=== PATIENT | female | born 1945 | race Caucasian/White ===

== ENCOUNTER 2018-12-09 11:14 | Inpatient (IN) | payer MEDICARE, MEDICAID ==
--- NOTE | 2018-12-09 12:23 | EDM.PDOC ---
ED HPI GENERAL MEDICAL PROBLEM - General Chief Complaint: General Stated Complaint: LETHARIGIC Time Seen by Provider: 12/09/18 11:40 Source of Information: Reports: Family (), Other (Patient can give essentially no history due to her previous stroke) History Limitations: Reports: Physical Impairment (As above) - History of Present Illness INITIAL COMMENTS - FREE TEXT/NARRATIVE: 73-year-old female with history of previous stroke who presents via from prison secondary to reported history of fever yesterday and poor by mouth intake for the past few days. The actually feels that she has not been eating or taking liquids well the past few weeks. She complains of neck pain today but cannot quantitate or qualitate this. No cough. No nausea. No vomiting. No chest pain. Apparently they called Dr. Zamora and he told them to bring her to the emergency department for evaluation. This is really all the history that can be obtained. There are no other associated signs or symptoms. There are no other modifying factors. Onset: Other ( is really unsure but he reports that the symptoms have been worsening since 12/07/2018 and he feels that she has not been eating or drinking well for the past few weeks.) Duration: Other (Unknown) Location: Reports: Neck Quality: Reports: Other (Patient unable to provide this area she apparently has had torticollis to the right for 6 months or longer and this is unchanged per the . 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 - Related Data Allergies Allergy/AdvReac Type Severity Reaction Status Date / Time Penicillins Allergy Cannot Verified 12/09/18 11:20 Remember Sulfa (Sulfonamide Allergy Cannot Verified 12/09/18 11:20 Antibiotics) Remember Home Meds: Home Meds Acetaminophen [Tylenol] 650 mg PO ASDIRECTED PRN 12/09/18 [History] Acetaminophen [Tylenol] 650 mg PO BID 12/09/18 [History] Bisacodyl 10 mg RC DAILY PRN 12/09/18 [History] Chlorhexidine Gluconate [Peridex] 15 ml MM BID 12/09/18 [History] Cholecalciferol (Vitamin D3) [Vitamin D3] 2,000 units PO DAILY 12/09/18 [History ] Digoxin 125 mcg PO DAILY 12/09/18 [History] Diltiazem HCl [Cardizem] 60 mg PO TID 12/09/18 [History] FLUoxetine HCl [Prozac] 20 mg PO DAILY 12/09/18 [History] FLUoxetine [PROzac] 10 mg PO DAILY 12/09/18 [History] Hydrocortisone [Hydrocortisone 1% Oint] 1 applic TOP BID PRN 12/09/18 [History] Insulin Detemir [Levemir] 22 unit SUBCUT DAILY 12/09/18 [History] Levothyroxine [Synthroid] 50 mcg PO 0600 12/09/18 [History] Loperamide HCl [Imodium A-D] 2 mg PO ASDIRECTED PRN 12/09/18 [History] Magnesium Hydroxide [Milk of Magnesia] 30 ml PO DAILY PRN 12/09/18 [History] Menthol/Selenium Sulfide [Selsun Blue 1% Shampoo] 118 ml TOP TU 12/09/18 [ History] Paliperidone [Invega] 3 mg PO 1800 12/09/18 [History] Polyethylene Glycol 3350 [MiraLAX] 17 gm PO DAILY 12/09/18 [History] Sennosides/Docusate Sodium [Senna-S] 1 each PO BID 12/09/18 [History] Simvastatin 10 mg PO 1800 12/09/18 [History] Warfarin [Coumadin] 2.5 mg PO MOFR 12/09/18 [History] Warfarin [Coumadin] 5 mg PO SUTUWETHSA 12/09/18 [History] clonazePAM [Klonopin] 1 mg PO DAILY 12/09/18 [History] clonazePAM [Klonopin] 2 mg PO BEDTIME 12/09/18 [History] metFORMIN [Glucophage] 1,000 mg PO BIDMEALS 12/09/18 [History] Past Medical History Cardiovascular History: Reports: Afib (Chronic and anticoagulated with Coumadin) , High Cholesterol, Hypertension, Pacemaker Neurological History: Reports: CVA Endocrine/Metabolic History: Reports: Hypothyroidism Hematologic History: Reports: Anticoagulation Therapy (On Coumadin) - Past Surgical History Cardiovascular Surgical History: Reports: Pacer GI Surgical History: Reports: Appendectomy, Cholecystectomy Endocrine Surgical History: Reports: Thyroidectomy Social & Family History - Tobacco Use Smoking Status *Q: Never Smoker - Alcohol Use Alcohol Use History: No - Living Situation & Occupation Living situation: Reports: Extended Care Facility Social History Comment: Here with . ED ROS GENERAL - Review of Systems Review Of Systems: Unable To Obtain (Patient cannot provide this information secondary to her previous stroke.) ED EXAM, GENERAL - Physical Exam Exam: See Below Exam Limited By: No Limitations General Appearance: Alert, No Apparent Distress Eye Exam: Bilateral Eye: EOMI, Normal Inspection Ears: Normal External Exam, Hearing Grossly Normal Nose: Normal Inspection, Normal Mucosa, No Blood Throat/Mouth: No Airway Compromise, Other (Dry membranes) Head: Atraumatic, Normocephalic Neck: Supple, Non-Tender, Other (Torticollis the right) Respiratory/Chest: No Respiratory Distress, Lungs Clear, Normal Breath Sounds, No Accessory Muscle Use Cardiovascular: Normal Peripheral Pulses, Regular Rate, Rhythm, No JVD Peripheral Pulses: 2+: Radial (L), Radial (R) GI/Abdominal: Normal Bowel Sounds, Soft, Non-Tender, No Organomegaly, No Mass Extremities: Normal Inspection, Non-Tender, No Pedal Edema Neurological: Alert, Sensory/Motor Deficit (Left-sided weakness which is chronic ) Skin Exam: Warm, Dry, Normal Color Lymphatic: No Adenopathy Course - Vital Signs Last Recorded V/S: Last Vital Signs Temp 36.4 C 12/09/18 14:30 Pulse 97 12/09/18 14:30 Resp 18 12/09/18 14:30 BP 126/95 H 12/09/18 14:30 Pulse Ox 96 12/09/18 14:30 - Orders/Labs/Meds Orders: Active Orders 24 hr Category Date Time Status CULTURE URINE [RM] Stat Lab 12/09/18 12:30 Received Sodium Chloride 0.9% [Saline Flush] Med 12/09/18 13:16 Active 10 ml FLUSH ASDIRECTED PRN Peripheral IV Insertion Adult [OM.PC] Routine Oth 12/09/18 13:16 Ordered Medication Orders Acetaminophen (Tylenol) 650 mg PO Q4H PRN PRN Reason: Pain (Mild 1-3)/fever Digoxin (Lanoxin) 125 mcg PO DAILY ANDREA Diltiazem HCl (Cardizem) 60 mg PO TID ANDREA Fluoxetine HCl (Prozac) 20 mg PO DAILY ANDREA Sodium Chloride (Normal Saline) 1,000 mls @ 150 mls/hr IV ASDIRECTED ANDREA Levothyroxine Sodium (Synthroid) 50 mcg PO 0600 ANDREA Sodium Chloride (Saline Flush) 10 ml FLUSH ASDIRECTED PRN PRN Reason: Keep Vein Open Last Admin: 12/09/18 14:30 Dose: 10 ml Admin: 12/09/18 14:10 Dose: 10 ml Labs: Laboratory Tests 12/09/18 12/09/18 12/09/18 Range/Units 12:20 12:20 12:20 WBC 10.8 (4.5-12.0) X10-3/uL RBC 4.26 (3.23-5.20) x10(6)uL Hgb 13.1 (11.5-15.5) g/dL Hct 39.5 (30.0-51.3) % MCV 92.9 (80-96) fL MCH 30.8 (27.7-33.6) pg MCHC 33.1 (32.2-35.4) g/dL RDW 14.2 (11.5-15.5) % Plt Count 252 (125-369) X10(3)uL MPV 9.4 (7.4-10.4) fL Neut % (Auto) 73.5 (46-82) % Lymph % (Auto) 17.7 (13-37) % Dickson % (Auto) 5.7 (4-12) % Eos % (Auto) 0 L (1.0-5.0) % Baso % (Auto) 3 H (0-2) % Neut # (Auto) 8.0 (1.6-8.3) # Lymph # (Auto) 1.9 (0.6-5.0) # Dickson # (Auto) 0.6 (0.0-1.3) # Eos # (Auto) 0.0 (0.0-0.8) # Baso # (Auto) 0.3 H (0.0-0.2) # PT 63.6 H* (8.7-11.1) INR 6.68 H* (0.89-1.13) APTT 36.3 H (24.4-33.2) SECONDS Sodium 151 H (135-145) mmol/L Potassium 4.2 (3.5-5.3) mmol/L Chloride 112 H D (100-110) mmol/L Carbon Dioxide 21 (21-32) mmol/L BUN 51 H D (7-18) mg/dL Creatinine 1.0 (0.55-1.02) mg/dL Est Cr Clr Drug Dosing 43.70 mL/min Estimated GFR (MDRD) 55 L (>60) BUN/Creatinine Ratio 51.0 H (9-20) Glucose 170 H (80-116) mg/dL Calcium 9.3 (8.6-10.2) mg/dL Magnesium 1.7 L (1.8-2.5) mg/dL Total Bilirubin 0.5 (0.1-1.3) mg/dL AST 48 H D (5-25) IU/L ALT 79 H D (12-36) U/L Alkaline Phosphatase 49 L (56-112) IU/L C-Reactive Protein (0.5-0.9) mg/dL Total Protein 7.2 (6.0-8.0) g/dL Albumin 3.2 (3.2-4.6) g/dL Globulin 4.0 g/dL Albumin/Globulin Ratio 0.8 Urine Color (YELLOW) Urine Appearance (CLEAR) Urine pH (5.0-6.5) Ur Specific [place] (1.010-1.025) Urine Protein (NEGATIVE) mg/dL Urine Glucose (UA) (NORMAL) mg/dL Urine Ketones (NEGATIVE) mg/dL Urine Occult Blood (NEGATIVE) Urine Nitrite (NEGATIVE) Urine Bilirubin (NEGATIVE) Urine Urobilinogen (NEGATIVE) mg/dL Ur Leukocyte Esterase (NEGATIVE) Urine RBC (0-5) Urine WBC (0-5) Ur Squamous Epith Cells (NS,R,O) Amorphous Sediment Urine Bacteria (NS) Urine Mucus (NS) 12/09/18 12/09/18 Range/Units 12:20 12:30 WBC (4.5-12.0) X10-3/uL RBC (3.23-5.20) x10(6)uL Hgb (11.5-15.5) g/dL Hct (30.0-51.3) % MCV (80-96) fL MCH (27.7-33.6) pg MCHC (32.2-35.4) g/dL RDW (11.5-15.5) % Plt Count (125-369) X10(3)uL MPV (7.4-10.4) fL Neut % (Auto) (46-82) % Lymph % (Auto) (13-37) % Dickson % (Auto) (4-12) % Eos % (Auto) (1.0-5.0) % Baso % (Auto) (0-2) % Neut # (Auto) (1.6-8.3) # Lymph # (Auto) (0.6-5.0) # Dickson # (Auto) (0.0-1.3) # Eos # (Auto) (0.0-0.8) # Baso # (Auto) (0.0-0.2) # PT (8.7-11.1) INR (0.89-1.13) APTT (24.4-33.2) SECONDS Sodium (135-145) mmol/L Potassium (3.5-5.3) mmol/L Chloride (100-110) mmol/L Carbon Dioxide (21-32) mmol/L BUN (7-18) mg/dL Creatinine (0.55-1.02) mg/dL Est Cr Clr Drug Dosing mL/min Estimated GFR (MDRD) (>60) BUN/Creatinine Ratio (9-20) Glucose (80-116) mg/dL Calcium (8.6-10.2) mg/dL Magnesium (1.8-2.5) mg/dL Total Bilirubin (0.1-1.3) mg/dL AST (5-25) IU/L ALT (12-36) U/L Alkaline Phosphatase (56-112) IU/L C-Reactive Protein 1.9 H (0.5-0.9) mg/dL Total Protein (6.0-8.0) g/dL Albumin (3.2-4.6) g/dL Globulin g/dL Albumin/Globulin Ratio Urine Color Yellow (YELLOW) Urine Appearance Cloudy (CLEAR) Urine pH 5.0 (5.0-6.5) Ur Specific [place] 1.025 (1.010-1.025) Urine Protein 100 H (NEGATIVE) mg/dL Urine Glucose (UA) Normal (NORMAL) mg/dL Urine Ketones 15 H (NEGATIVE) mg/dL Urine Occult Blood Moderate H (NEGATIVE) Urine Nitrite Negative (NEGATIVE) Urine Bilirubin Small H (NEGATIVE) Urine Urobilinogen 1 H (NEGATIVE) mg/dL Ur Leukocyte Esterase Negative (NEGATIVE) Urine RBC 5-10 H (0-5) Urine WBC 0-5 (0-5) Ur Squamous Epith Cells Few H (NS,R,O) Amorphous Sediment Few Urine Bacteria Many H (NS) Urine Mucus Few H (NS) Meds: Medications Generic Name Dose Route Start Last Admin Trade Name Freq PRN Reason Stop Dose Admin Acetaminophen 650 mg 12/09/18 15:59 Tylenol PO Q4H PRN Pain (Mild 1-3)/fever Digoxin 125 mcg 12/10/18 09:00 Lanoxin PO DAILY ANDREA Diltiazem HCl 60 mg 12/09/18 21:00 Cardizem PO TID ANDREA Fluoxetine HCl 20 mg 12/10/18 09:00 Prozac PO DAILY ANDREA Sodium Chloride 1,000 mls @ 150 mls/hr 12/09/18 16:30 Normal Saline IV ASDIRECTED ANDREA Levothyroxine Sodium 50 mcg 12/10/18 06:00 Synthroid PO 0600 ANDREA Sodium Chloride 10 ml 12/09/18 13:16 12/09/18 14:30 Saline Flush FLUSH 10 ml ASDIRECTED PRN Administration Keep Vein Open Discontinued Medications Generic Name Dose Route Start Last Admin Trade Name Freq PRN Reason Stop Dose Admin Sodium Chloride 1,000 mls @ 999 mls/hr 12/09/18 13:16 12/09/18 14:10 Normal Saline IV 12/09/18 14:16 999 mls/hr .BOLUS ONE Administration - Radiology Interpretation Free Text/Narrative:: Portable chest x-ray reveals no acute disease. CT scan of head shows progressive atrophy but nothing acute. Specifically, there was no bleed. - Re-Assessments/Exams Free Text/Narrative Re-Assessment/Exam: 12/09/18 16:20: The patient has evidence of hypernatremic dehydration. She also has a supratherapeutic INR. She also has evidence of a urinary tract infection. Her debilitated state with poor reserve and poor by mouth intake will require that she be admitted for IV fluid hydration, careful monitoring and IV antibiotics for treatment of her urinary tract infection. Her plan of care cannot be safely accomplished as an outpatient and therefore she will need admission. I discussed the patient's case with Dr. Leal, hospitalist at [facility], and he has agreed to admit the patient. Departure - Departure Time of Disposition: 16:20 Disposition: Admitted As Inpatient 67 Condition: Fair Clinical Impression: Acute hypernatremia, Dehydration, Supratherapeutic INR UTI (urinary tract infection) Qualifiers: Urinary tract infection type: site unspecified Hematuria presence: with hematuria Qualified Code(s): N39.0 - Urinary tract infection, site not specified ; R31.9 - Hematuria, unspecified - Discharge Information - My Orders Last 24 Hours: My Active Orders 12/09/18 12:30 CULTURE URINE [RM] Stat 12/09/18 13:16 Sodium Chloride 0.9% [Saline Flush] 10 ml FLUSH ASDIRECTED PRN Peripheral IV Insertion Adult [OM.PC] Routine - Assessment/Plan Last 24 Hours: My Active Orders 12/09/18 12:30 CULTURE URINE [RM] Stat 12/09/18 13:16 Sodium Chloride 0.9% [Saline Flush] 10 ml FLUSH ASDIRECTED PRN Peripheral IV Insertion Adult [OM.PC] Routine
[2018-12-09] MEDS ORDERED: Sodium Chloride 0.9% 1,000 ML IV ONE (13:16)
[2018-12-09] MEDS: Sodium Chloride 0.9% 10 ML Syringe FLUSH PRN ×2 (14:10→14:30)
--- NOTE | 2018-12-09 15:02 | CR ---
INDICATION: Fever, weakness. CHEST: An AP upright portable view of the chest was obtained 12/09/18 and compared with 11/04/09 and 09/20/09, revealing bipolar pacemaker leads unchanged in position. The heart did not appear enlarged. The aorta is tortuous with calcification minimally in the arch. An active infiltrate or effusion was not identified. There is an appearance of scoliosis, which may be positional. IMPRESSION: No acute process. MTDD
--- NOTE | 2018-12-09 15:11 | CT ---
INDICATION: Lethargic, weakness. CT HEAD WITHOUT CONTRAST: Spiral examination of the brain axially was obtained with reformats and sagittal and coronal reconstructions, 12/09/18, and were compared with 09/21/12. Total exam DLP = 1,296.18 mGy-cm. The mastoid air cells and the paranasal sinuses were well-aerated. No cranial abnormality was seen. No shift of midline structures was identified. The ventricles are rather prominent and are increased in prominence, compared with the previous study, compatible with progressive central atrophy. Cortical sulci are slightly prominent, suggesting a mild degree of cortical atrophy additionally. The occipital horn of the right lateral ventricle is markedly increased in prominence, compared with the previous study, compatible with a previous thrombotic CVA in the medial portion of the right occipital lobe with increased encephalomalacia in that area, compared with the previous study. White matter changes compatible with a mild degree of microvascular disease are noted. Two lacunar infarcts are again noted in the left basal ganglia. Minimal calcifications are noted in the left vertebral artery and the internal carotic arteries. A degree of cerebellar atrophy is again noted. The orbits were intact. No bleeding site or hematoma was suggested. IMPRESSION: 1. No acute intracranial abnormality. 2. Progressive central atrophy and encephalomalacia right occipital lobe area with relatively marked increase size of the occipital horn of the right lateral ventricle. 3. Mild microvascular disease. 4. Lacunar infarcts left basal ganglia again noted. 5. Calcifications, minimal, in the left vertebral and internal carotid arteries. Report was called to Dr. Brown at 1455 hours on 12/09/18. [facility]
[2018-12-09] MEDS: Sodium Chloride 0.9% 1,000 ML IV SCH ×2 (15:40→22:05)
[2018-12-09] MEDS: DILTIAZEM IR PO SCH (22:04)
--- NOTE | 2018-12-09 22:49 | HP ---
ADMISSION DATE: 12/09/2018 History is from the daughter and the long term report. The patient is unable to give history. HISTORY OF PRESENT ILLNESS: Mrs. Mccord is a 73-year-old resident of [facility] with a history of a dense right CVA with left hemiplegia, type 2 diabetes, chronic atrial fibrillation with pacemaker in place, anxiety and depression, with history of visual hallucinations. According to the nurse notes, she began eating less the day prior to admission such that she seemed like she was getting dehydrated. She said she did not have anything to eat or drink of substance for the past 24 hours and has become significantly weaker. For this reason, she was taken to [facility] where she was evaluated by Dr. Brown and is now admitted to [facility] observation care. The patient is unable to give a good history. She is able to answer yes or no one-word answers. She denies any current pain. PAST MEDICAL HISTORY: Significant for the stroke several years ago. She has been in [facility] for the past several years as well. She has chronic atrial fibrillation with a pacemaker in place and medication suppression of her tachycardia. She has significant hemiplegia and visual field cut from her stroke. She has severe anxiety, depression, and history of visual hallucinations. She has had type 2 diabetes, hypothyroidism along with history of hyperlipidemia and constipation. MEDICATIONS: 1. Warfarin 2.5 mg Mondays and Fridays, 5 mg 5 days a week. 2. Simvastatin 10 mg daily. 3. Senokot-S 1 b.i.d. 4. MiraLAX 17 g daily. 5. Invega 3 mg daily. 6. Metformin 1000 mg b.i.d. 7. Selsun Blue shampoo p.r.n. 8. Milk of magnesia p.r.n. 9. Imodium p.r.n. 10.Levothyroxine 50 mcg daily. 11.Levemir 22 units daily. 12.Hydrocortisone cream p.r.n. 13.Fluoxetine 30 mg daily. 14.Diltiazem 60 mg t.i.d. 15.Digoxin 125 mcg daily. 16.Clonazepam 1 mg a.m., 2 mg at bedtime. 17.Vitamin D3 2000 units daily. 18.Peridex mouthwash 15 mL b.i.d. 19.Dulcolax suppository p.r.n. 20.Tylenol p.r.n. ALLERGIES: Penicillin and sulfa. HABITS: Nonsmoker and nondrinker. FAMILY AND SOCIAL HISTORY: The patient is . She lives at [facility]. Her lives in [place], and she is accompanied by a daughter today. REVIEW OF SYSTEMS: Not reliably obtainable from the patient, but positive for low-grade fever in the last 48 hours, poor oral intake, and generalized progressive weakness along with her chronic hemiplegia. No apparent changes in hearing or vision or complaints of pain. No cough, dyspnea, vomiting, diarrhea, swelling, skin rash. PHYSICAL EXAMINATION: GENERAL: She is pale, thin, and lies in the right position. VITAL SIGNS: Blood pressure 126/95, pulse 97 and irregular, respirations 18, O2 saturation 96% on room air, temperature 97.5, weight 120 pounds stated. SKIN: Anicteric. Warm and dry without rash. HEENT: Shows her mouth to be dry. LUNGS: Clear with good air movement bilaterally. HEART: Regular. No murmur or gallop heard. ABDOMEN: Normal bowel sounds. Soft and nontender. No masses. EXTREMITIES: Show no edema. NEUROLOGIC: Reveals her to be able to answer one-word answers, but appears to have cloudy thinking. She is hemiplegic on the left with spasticity. LABORATORY DATA: White count 10,800, hemoglobin 13.1. INR 6.68. Sodium 151, potassium 4.2, BUN 51, creatinine 1.0, glucose 170, magnesium 1.7. Urinalysis: 5 to 10 red cells, 0 to 5 white cells. ASSESSMENT: 1. A 73-year-old woman with history of dense cerebrovascular accident with left hemiplegia, now admitted with dehydration and likely urinary tract infection. 2. Chronic atrial fibrillation, on anticoagulation with high INR. 3. Severe anxiety and depression with history of hallucinations. 4. Type 2 diabetes. 5. Hyperlipidemia. 6. Hypothyroidism. PLAN: We will hold her warfarin, give her IV fluids and antibiotics to treat the urinary tract infection. If she is able to eat or drink, she may be able to be returned to the long term within 24 hours. /[id number] GHULAM/GEORGEL
[2018-12-10] MEDS: Sodium Chloride 0.9% 1,000 ML IV SCH ×3 (04:33→18:17)
[2018-12-10] MEDS ORDERED: Levothyroxine 50 MCG Tab *PTOM PO SCH (06:00)
[2018-12-10] MEDS ORDERED: Phytonadione ORAL 5mg/5ml Soln Simple Syrup U/D PO ONE (07:27)
[2018-12-10] MEDS ORDERED: cefTRIAXone 1 GM in Sodium Chloride 0.9% 50 ML IV SCH (08:15)
[2018-12-10] MEDS: cefTRIAXone 1 GM Vial IV SCH (08:56)
[2018-12-10] MEDS ORDERED: LEVEMIR SUBCUT SCH (09:00)
[2018-12-10] MEDS ORDERED: FLUoxetine 20 MG Cap *PTOM PO SCH (09:00)
[2018-12-10] MEDS: DILTIAZEM IR PO SCH ×2 (09:01→13:41)
[2018-12-10] MEDS: Insulin Lispro 100 Unit/ML 3 ML KwikPen SUBCUT SCH ×2 (13:37→18:21)
[2018-12-10] MEDS: Acetaminophen 325 MG Tab PO PRN (16:24)
[2018-12-10] MEDS: PALIPERIDONE 3 MG PO SCH (18:23)
[2018-12-10] MEDS: ClonazePAM 1 MG Tab PO SCH (20:21)
[2018-12-10] MEDS ORDERED: Diltiazem IR 30 MG Tab PO SCH (21:00)
[2018-12-11] MEDS: Sodium Chloride 0.9% 1,000 ML IV SCH ×2 (00:54→07:40)
[2018-12-11] MEDS: Levothyroxine 50 MCG Tab PO SCH (06:17)
--- NOTE | 2018-12-11 07:48 | PN ---
DATE SEEN: 12/10/2018 HISTORY: Nava is a 73-year-old resident of [facility] with a history of a dense right CVA and left hemiplegia, type 2 diabetes, chronic hypothyroidism, atrial fibrillation with pacemaker, and severe anxiety and depression. The patient was admitted through the emergency room yesterday because of lethargy, poor oral intake, weakness, and depressed level of alertness. Admission exam confirmed the above symptoms. Laboratory returned with a normal CBC, INR of 6.68, sodium 151, BUN 51, creatinine 1.0, glucose 170, AST 48, ALT 79, and urinalysis with moderate occult blood, 5-10 red cells, 0-5 white cells. She was admitted with dehydration, elevated INR, and hematuria. There was no clear-cut evidence of acute urinary infection. She was given IV fluid overnight and her medications were simplified. This morning, she is more alert. She answers questions with 1-2 word answers. Opens her eyes to voice and denies any pain. She has remained afebrile, since admission and vital signs have been stable. PHYSICAL EXAMINATION: GENERAL: She opens her eyes to voice and will answer in 1-2 word answers, stating she feels "pretty good" and denies any pain. MOUTH: Dry. LUNGS: Clear. HEART: Regular without murmur. ABDOMEN: Normal bowel sounds. Soft. No tenderness. No masses. No organomegaly, guarding, or rebound. EXTREMITIES: No edema. She has the weakness on the left, consistent with her longstanding left hemiplegia. LABORATORY DATA: This morning, white count up to 16,000 with slight left shift. INR increased to 8.58. Sodium 150, potassium 3.5, BUN 39, creatinine 0.8, glucose 233. ASSESSMENT: Increased lethargy, poor oral intake, weakness, dehydration with elevated INR, and now slightly elevated white blood count. It is not clear if the elevated white count is demargination or possible infection. No sign of sepsis. PLAN: She is given 1 g of Rocephin IV and 1 mg of oral vitamin K. We will continue to hold her warfarin. Keep her medications simplified and minimized and anticipate she will need to remain hospitalized for an additional 24 hours with plans to return to [facility] when recuperated. We will continue to provide palliative care measures for underlying old CVA with hemiplegia, anxiety, depression, and immobility. /[id number] Feliciano PARMAR/DELORIS
[2018-12-11] MEDS: Insulin Lispro 100 Unit/ML 3 ML KwikPen SUBCUT SCH ×3 (07:53→17:34)
[2018-12-11] MEDS: cefTRIAXone 1 GM Vial IV SCH (07:57)
[2018-12-11] MEDS ORDERED: FLUOXETINE 10 MG PO SCH (09:00)
[2018-12-11] MEDS: Potassium Chloride 10 MEQ Tab.ER PO SCH (10:17)
[2018-12-11] MEDS: ClonazePAM 1 MG Tab PO SCH ×2 (10:17→20:37)
[2018-12-11] MEDS: Digoxin 125 MCG Tab PO SCH (10:18)
[2018-12-11] MEDS: Diltiazem IR 60 MG Tab PO SCH ×3 (10:20→20:37)
[2018-12-11] MEDS: FLUoxetine 10 MG Cap PO SCH (10:23)
[2018-12-11] MEDS: FLUoxetine 20 MG Cap PO SCH (10:23)
[2018-12-11] MEDS: Insulin Glargine,Human Rec. Analog 100 Units/ML 3 ML Pen SUBCUT SCH (10:43)
[2018-12-11] MEDS: Warfarin 5 MG Tab PO SCH (15:14)
[2018-12-11] MEDS: PALIPERIDONE 3 MG PO SCH (17:35)
[2018-12-12] MEDS: Levothyroxine 50 MCG Tab PO SCH ×2 (05:06→05:19)
--- NOTE | 2018-12-12 07:50 | PN ---
DATE SEEN: 12/11/2018 HISTORY: Nava is a 73-year-old resident of [facility] with a history of a remote stroke and dense left hemiplegia. She had been declining with weakness, poor oral intake, and dehydration and lethargy at the custodial. She was admitted to [place] on 12/09/2018. Admission labs showed her white count to be 16,000, INR was 6.67, BUN 51, creatinine 1. Urinalysis showed 5-10 red cells, 0-5 white cells. She was suspected to have urinary tract infection. She was admitted to the hospital. She has been receiving IV fluids and IV Rocephin for suspected UTI. She has become more alert. She has gained weight and is responding to treatment slowly, but steadily. She was examined in her bed this morning. She is awake and eating breakfast. PHYSICAL EXAMINATION: VITAL SIGNS: Blood pressure 109/74, pulse 71, respirations 20, O2 saturation 98% on room air, weight 123 pounds, this is up from 120 pounds on admission. SKIN: No rash or sign of trauma. MOUTH: Dry. LUNGS: Clear to the bases. HEART: Regular without murmur or gallop. ABDOMEN: Soft. EXTREMITIES: No edema. She has a left-sided hemiplegia. ASSESSMENT: 1. Dehydration, weakness likely secondary to multifactorial. 2. Suspected urinary tract infection. 3. History of chronic atrial fibrillation on pacemaker. 4. INR is supratherapeutic, now resolved after small dose of vitamin K. 5. Anxiety and depression. PLAN: We will discontinue her IV fluids today. We will continue the IV Rocephin and await urine cultures. We will continue her insulin and resume oral warfarin. Anticipate that she may be improved enough for discharge back to the custodial in 24 hours. We will also continue her palliative care measures for underlying stroke and chronic medical illnesses. /[id number] GHULAM/DELORIS
[2018-12-12] MEDS: Insulin Lispro 100 Unit/ML 3 ML KwikPen SUBCUT SCH ×3 (07:54→17:43)
[2018-12-12] MEDS: Diltiazem IR 60 MG Tab PO SCH ×3 (08:57→22:09)
[2018-12-12] MEDS: Digoxin 125 MCG Tab PO SCH (08:57)
[2018-12-12] MEDS: Potassium Chloride 10 MEQ Tab.ER PO SCH (08:57)
[2018-12-12] MEDS: Insulin Glargine,Human Rec. Analog 100 Units/ML 3 ML Pen SUBCUT SCH (08:58)
[2018-12-12] MEDS: cefTRIAXone 1 GM Vial IV SCH (09:00)
[2018-12-12] MEDS: ClonazePAM 1 MG Tab PO SCH ×2 (09:02→23:10)
[2018-12-12] MEDS: FLUoxetine 20 MG Cap PO SCH (10:05)
[2018-12-12] MEDS: FLUoxetine 10 MG Cap PO SCH (10:06)
--- NOTE | 2018-12-12 13:17 | PN ---
DATE SEEN: 12/12/2018 SUBJECTIVE: Nava Mccord is a 73-year-old female, who resides at [facility]. Had a remote CVA with left hemiparesis, pacemaker, complicated anxiety, atrial fibrillation, type 2 diabetes mellitus. Admitted with dehydration and inadequate intake at the [facility]. Laboratory studies of significance, noted. INR 1.42. Hemoglobin 10.6, stable; white count 12,400. Urine was a concern for infection, culture returned negative, Rocephin to be discontinued. Other laboratory studies unremarkable. OBJECTIVE: VITAL SIGNS: 36.4 degrees centigrade, 56 kg, 114/75, 88 the mean blood pressure, 18, and 98%. GENERAL: Withdrawn, noncommunicative, intake markedly limited. CHEST: Clear, all lung poole. HEART: Distant heart sounds. ABDOMEN: Benign. MUSCULOSKELETAL: Kyphotic posture. ASSESSMENT: Complicated decline. PLAN: Discussed feeding tube is a consideration. Has given up the bed at [facility] therefore not dischargeable, bed available at [facility], again noted cannot do syringe feedings for feedings in the [facility]. Complication of concern. Discussed opportunity for hospice to be involved potentially. /[id number] CARROL/DELORIS
[2018-12-12] MEDS ORDERED: Warfarin 5 MG Tab PO SCH (16:00)
[2018-12-12] MEDS ORDERED: Warfarin 2.5 MG Tab PO SCH (16:00)
[2018-12-12] MEDS: PALIPERIDONE 3 MG PO SCH (17:44)
[2018-12-12] MEDS ORDERED: Morphine 2 MG/ML Syringe IV ONE (22:08)
[2018-12-13] MEDS: ClonazePAM 1 MG Tab PO SCH ×3 (01:09→20:33)
[2018-12-13] MEDS: Levothyroxine 50 MCG Tab PO SCH (05:41)
[2018-12-13] MEDS: Insulin Lispro 100 Unit/ML 3 ML KwikPen SUBCUT SCH ×3 (08:41→18:00)
[2018-12-13] MEDS: FLUoxetine 10 MG Cap PO SCH (08:42)
[2018-12-13] MEDS: Digoxin 125 MCG Tab PO SCH (08:42)
[2018-12-13] MEDS: FLUoxetine 20 MG Cap PO SCH (08:42)
[2018-12-13] MEDS: Potassium Chloride 10 MEQ Tab.ER PO SCH (08:42)
[2018-12-13] MEDS: Diltiazem IR 60 MG Tab PO SCH ×3 (08:43→20:33)
[2018-12-13] MEDS: Insulin Glargine,Human Rec. Analog 100 Units/ML 3 ML Pen SUBCUT SCH (08:45)
[2018-12-13] MEDS ORDERED: Morphine 2 MG/ML Syringe IVPUSH PRN (09:06)
[2018-12-13] MEDS ORDERED: Scopolamine 1.5 MG Transdermal Patch TRDERM SCH (10:00)
--- NOTE | 2018-12-13 11:02 | PN ---
DATE SEEN: 12/13/2018 SUBJECTIVE: Nava Mccord is a 73-year-old female, seen for routine care. A bit more bright today. Intake has been limited, more obtunded. Pain and respiratory difficulty continue. LABORATORY STUDIES: None recent, will be performed today. MEDICATIONS: Reviewed and include: 1. Klonopin. 2. Lanoxin. 3. Cardizem. 4. Fluoxetine. 5. Insulin has been held, both Lantus and Humalog. 6. Levothyroxine on board. 7. Morphine and scopolamine patch will be added. OBJECTIVE: VITAL SIGNS: 56.47 kg, 36.4, 112/62, 14, 99. GENERAL: A bit more wakeful. Little bit spontaneous speech. NECK: Benign. Thyroid small. CHEST: Decreased breath sounds. Coarse rhonchi at both bases. HEART: Distant heart sounds with occasional ectopy. ABDOMEN: Benign. ASSESSMENT: Acute clinical decline with underlying complicated left hemiparesis, diabetes mellitus, and chronic atrial fibrillation. PLAN: We will add morphine sublingual, some scopolamine, and has Klonopin on board. A bit more awake and alert. We will attempt to feed with greater success. Blood sugars are going up a little bit. We will be watchful of them. Insulin may be reinstituted on a limited basis. /[id number] /DELORIS
[2018-12-13] MEDS: Warfarin 5 MG Tab PO SCH (17:06)
[2018-12-13] MEDS: PALIPERIDONE 3 MG PO SCH (17:08)
[2018-12-14] MEDS: Levothyroxine 50 MCG Tab PO SCH (06:36)
[2018-12-14] MEDS: Insulin Lispro 100 Unit/ML 3 ML KwikPen SUBCUT SCH ×3 (07:52→17:54)
[2018-12-14] MEDS: FLUoxetine 10 MG Cap PO SCH (10:00)
[2018-12-14] MEDS: FLUoxetine 20 MG Cap PO SCH (10:00)
[2018-12-14] MEDS: Diltiazem IR 60 MG Tab PO SCH ×3 (10:01→20:03)
[2018-12-14] MEDS: Potassium Chloride 10 MEQ Tab.ER PO SCH (10:01)
[2018-12-14] MEDS: Insulin Glargine,Human Rec. Analog 100 Units/ML 3 ML Pen SUBCUT SCH (10:02)
[2018-12-14] MEDS: Digoxin 125 MCG Tab PO SCH (10:02)
[2018-12-14] MEDS: ClonazePAM 1 MG Tab PO SCH ×2 (10:07→20:04)
[2018-12-14] MEDS: Warfarin 5 MG Tab PO SCH (16:23)
[2018-12-14] MEDS: PALIPERIDONE 3 MG PO SCH (17:55)
[2018-12-15] MEDS: Acetaminophen 325 MG Tab PO PRN (00:14)
[2018-12-15] MEDS: Levothyroxine 50 MCG Tab PO SCH (06:44)
[2018-12-15] MEDS: Digoxin 125 MCG Tab PO SCH (08:24)
[2018-12-15] MEDS: Diltiazem IR 60 MG Tab PO SCH ×2 (08:24→14:07)
[2018-12-15] MEDS: Insulin Lispro 100 Unit/ML 3 ML KwikPen SUBCUT SCH ×2 (08:25→12:47)
[2018-12-15] MEDS: FLUoxetine 20 MG Cap PO SCH (08:25)
[2018-12-15] MEDS: FLUoxetine 10 MG Cap PO SCH (08:25)
[2018-12-15] MEDS: Insulin Glargine,Human Rec. Analog 100 Units/ML 3 ML Pen SUBCUT SCH (08:26)
[2018-12-15] MEDS: Potassium Chloride 10 MEQ Tab.ER PO SCH (08:27)
[2018-12-15] MEDS: ClonazePAM 1 MG Tab PO SCH (08:35)
[2018-12-15] MEDS ORDERED: Phytonadione ORAL 5mg/5ml Soln Simple Syrup U/D PO ONE (08:56)
--- NOTE | 2018-12-15 11:06 | PN ---
DATE SEEN: 12/14/2018 SUBJECTIVE: Nava Mccord is a 73-year-old female, seen today for general review. Better, more wakeful today. Intake is a reasonable, did pretty well with a couple of meals yesterday, less so in the evening. More wakeful. There have been no untoward clinical findings. We will discontinue morphine and discontinue IV fluids. Scopolamine patch on board. OBJECTIVE: VITAL SIGNS: 36.6, 63, 120/83, 14, 95%. GENERAL: More wakeful, but little conversation. HEENT: Mouth and oropharynx are dry. NECK: Benign. CHEST: Coarse rhonchi at both bases. CARDIAC: Heart sounds distant. ABDOMEN: Benign. EXTREMITIES: Hemiparesis noted in left upper and lower extremities. ASSESSMENT: Declining health, previous CVA. PLAN: Diagnostic studies were performed. CT of head revealed no interval change. Chest x-ray, no major pathology. We will plan comfort measures, transfer likely to [facility] under review. /[id number] CARROL/DELORIS
--- NOTE | 2018-12-16 14:32 | DISCH ---
DISCHARGE DATE: 12/15/2018 DISCHARGE DIAGNOSES: 1. Dehydration. 2. Malnutrition. 3. Failure to thrive. SECONDARY DIAGNOSES: 1. Previous diabetes mellitus. 2. Cerebrovascular accident with residual hemiparesis, left side. 3. Coumadin therapy for cerebrovascular accident. HISTORY OF PRESENT ILLNESS: Ms. Mccord was admitted from [facility]. Had previous stent, right CVA with left hemiparesis, type 2 diabetes mellitus, chronic atrial fibrillation with pacemaker in place, anxiety and depression. Lack of intake, poor nutrition and dehydration present upon admission. DIAGNOSTIC STUDIES: Please see Dr. Leal's history and physical. Head CT revealed previous CVA, no new consequences. Chest x-ray revealed no active disease. Laboratory studies on admission were clearly defined dehydration and malnutrition. Intravenous fluids were maintained hydration, reluctant to eat and drink throughout. Coumadin was discontinued given circumstances, pacemaker working without complicating issue. Microbiology, no urine growth. LABORATORY STUDIES: Hemoglobin 10.8, normal indices. INR 12/15/2018 of 6.5 was given. Vitamin K 5 mg orally. [facility] was involved, comfort cares timely and appropriate. We will make transfer to [facility]. MEDICATIONS: Please see med recon list. Reduction accordingly. SURGICAL PROCEDURES: None. CONSULTATIONS: None. Discharge planning and care 30 minutes while hospice consult in place. /[id number] CARROL/DELORIS
== END 2018-12-15 14:00 | disposition hospice, inpatient (51) | DRG 641 ==
LOC: FB.ED 11:14 → FB.MS 15:48 → OBSVTOIN 12-10 16:20
PROVIDERS: ADMIT Family Medicine; ATTEND Family Medicine
DX: E86.0 Dehydration (principal); N39.0 Urinary tract infection, site not specified; I69.954 Hemiplegia and hemiparesis following unspecified cerebrovascular disease affecting left non-dominant side; E46 Unspecified protein-calorie malnutrition; Z66 Do not resuscitate; Z68.20 Body mass index [BMI] 20.0-20.9, adult; R31.9 Hematuria, unspecified; E03.9 Hypothyroidism, unspecified; I10 Essential (primary) hypertension; I48.2 Chronic atrial fibrillation; M43.6 Torticollis; I69.912 Visuospatial deficit and spatial neglect following unspecified cerebrovascular disease; E11.9 Type 2 diabetes mellitus without complications; R50.9 Fever, unspecified; R53.1 Weakness; R53.83 Other fatigue; R79.1 Abnormal coagulation profile; E87.0 Hyperosmolality and hypernatremia; E78.5 Hyperlipidemia, unspecified; Z95.0 Presence of cardiac pacemaker; F32.9 Major depressive disorder, single episode, unspecified; F41.9 Anxiety disorder, unspecified; K59.00 Constipation, unspecified; Z88.0 Allergy status to penicillin; Z88.2 Allergy status to sulfonamides; Z79.01 Long term (current) use of anticoagulants; Z79.84 Long term (current) use of oral hypoglycemic drugs; Z79.899 Other long term (current) drug therapy; Z90.49 Acquired absence of other specified parts of digestive tract; E89.0 Postprocedural hypothyroidism; Z86.69 Personal history of other diseases of the nervous system and sense organs; R62.7 Adult failure to thrive
CPT/HCPCS: 36415; 70450; 71045; 80048; 80053; 80069; 81001; 82962; 83735; 85025; 85027; 85610; 85730; 86140; 87086; 96360; 96361; 99285; 99285-25; A9270-GY; J0696; J1815; J1815-GY; J2270; J7030